=== PATIENT | female | born 1990 | race Caucasian/White ===

== ENCOUNTER 2017-11-25 20:43 | Emergency (ER) | payer OTHER ==
[2017-11-25 20:49] VITALS: BP 110/74; BMI 30.2
[2017-11-25] MEDS ORDERED: NS 1000 ML 1,000 ML IV ONE (21:10)
[2017-11-25] MEDS ORDERED: NS 1000 ML 1,000 ML ONE (21:11)
--- NOTE | 2017-11-25 21:24 | DR.GENAD ---
HPI - PCP Primary Care Physician: lakeisha - HPI Comment HPI Comment: PATIENT IS WEAK. NO FEVER. NOT HOLDING DOWN FOOD, FLUID OR PO MEDICATION. NO DYSURIA. - Complaint/Symptoms Chief Complaint Doctors Comments: NAUSEA, VOMITING AND DIARRHEA WITH ABDOMINAL CRAMPING TIMES ONE DAY. Chief Complaint:: pt c/o n/v for 24 hours - Nurses notes reviewed Nurses Notes Review: Yes - Source History Provided: Patient - Mode of Arrival Mode of Arrival: Ambulatory - Timing Onset of Chief Complaint: 11/24/17 Came on: Suddenly - Duration Duration: Constant Duration: Days - Severity Severity: Moderate PMH - PMH Past Medical History: Yes Past Medical History: Anxiety Past Surgical History: Yes Surgical History: [employer] Surgery, Tonsillectomy - Family History History of Family Medical Conditions: No - Social History Type of Tobacco Use: Cigarettes Does any household member use tobacco: No Alcohol Use: None Do you use any recreational Drugs:: No Lives With: Family Lives Where: Home - infectious screening In the last 2 months have you had wt loss of >10#?: NO Have you had fever, night sweats or hemotysis?: No Have you traveled outside the country in the last 6 months?: No Isolation: Standard ROS - Review of Systems Constitutional: Weakness, Fatigue. negative: Chills, Fever Eyes: negative: Eye Pain, Discharge ENTM: Nose Congestion. negative: Ear Pain, Nose Discharge, Throat Pain Respiratoy: No Symptoms Reported. negative: Productive Cough, Short of Breath, Wheezing, Hemoptysis Cardiovascular: No Symptoms Reported. negative: Chest Pain Gastrointestinal/Abdominal: Abdominal Pain, Diarrhea, Nausea, Vomiting Genitourinary: No Symptoms Reported. negative: Dysuria, Frequency, Hematuria Neurological: Weakness, Dizziness. negative: Headache Musculoskeletal: Muscle Pain Integumentary: No Symptoms Reported Hematologic/Lymphatic: No Symptoms Reported Endocrine: No Symptoms Reported All Other Systems: Reviewed and Negative PE - Vital Signs Vitals: Temperature 99.5 F Pulse Rate 102 Respiratory Rate 18 Blood Pressure 110/74 O2 Sat by Pulse Oximetry 100 - General Limitations: No Limitations General Appearance: Alert - Head Head Exam: Normal Inspection - Eyes Eye exam: Normal Appearance - ENT ENT Exam: Normal External Ear Exam External Ear Exam: Normal External Inspection TM/Canal Exam: Bilateral Normal Nose Exam: Normal Nose Exam Mouth Exam: Normal Inspection Throat Exam: Normal Inspection - Neck Neck Exam: Trachea Midline - Chest Chest Inspection: Symmetric Chest Wall Rise - Respiratory Respiratory Exam: Normal Lung Sounds Bilat Respiratory Exam: Bilateral Clear to Auscultation - Cardiovascular Cardiovascular Exam: Regular Rate, Normal Rhythm, Normal Heart Sounds - Abdominal Exam Abdominal Exam: Normal Bowel Sounds, Soft. negative: Tenderness - Extremities Extremities Exam: Normal Inspection - Back Back Exam: Normal Inspection - Neurologic Neurological Exam: Alert, Oriented X3 - Psychiatric Psychiatric Exam: Anxious - Skin Skin Exam: Normal Color MDM - Additional Information Additional Information Obtained From: Family - Differential Diagnosis Differential Diagnosis: DEHYDRATION, GASTROENTERITIS, INFLUENZA Course - Treatment Treatment: SEE ORDERS. - Education/Counseling Education/Counseling: Patient, Family, Education Educated On: Treatment, Diagnosis, Needs for Follow Up ROR - Labs Reviewed Laboratory Results Reviewed?: Yes Result Diagrams: 11/25/17 21:17 11/25/17 21:17 Laboratory: WBC 11.6 X10^3/uL (3.6-10.0) H 11/25/17 21:17 RBC 5.64 X10^6/uL (3.5-5.4) H 11/25/17 21:17 Hgb 16.4 g/dL (12.0-16.0) H 11/25/17 21:17 Hct 47.1 % (36.0-47.0) H 11/25/17 21:17 MCV 83.5 fL (80.0-100.0) 11/25/17 21:17 MCH 29.1 pg (27.0-34.0) 11/25/17 21:17 MCHC 34.9 g/dL (33.0-35.0) 11/25/17 21:17 RDW 13.1 % (11.6-16.5) 11/25/17 21:17 Plt Count 176 X10^3/uL (150.0-450.0) 11/25/17 21:17 MPV 9.6 fL (7.4-11.0) 11/25/17 21:17 Neut % 84.8 % (42.0-75.0) H 11/25/17 21:17 Lymph % 10.0 % (21.0-51.0) L 11/25/17 21:17 [place] % 3.7 % (0.0-13.0) 11/25/17 21:17 Eos % 1.2 % (0.9-2.9) 11/25/17 21:17 Baso % 0.3 % (0.2-1.0) 11/25/17 21:17 Neut # 9.9 x10^3/uL (2.2-4.8) H 11/25/17 21:17 Lymph # 1.2 X10^3/uL (1.3-2.9) L 11/25/17 21:17 [place] # 0.4 x10^3/uL (0.3-0.8) 11/25/17 21:17 Eos # 0.1 x10^3/uL (0.0-0.2) 11/25/17 21:17 Baso # 0.0 X10^3/uL (0.0-0.1) 11/25/17 21:17 Absolute Nucleated RBC 0.0 /100WBC 11/25/17 21:17 Sodium 140 mmol/L (136-145) 11/25/17 21:17 Corrected Sodium TNP 11/25/17 21:17 Potassium 3.9 mmol/L (3.5-5.1) 11/25/17 21:17 Chloride 103 mmol/L (98-107) 11/25/17 21:17 Carbon Dioxide 31.1 mmol/L (21-32) 11/25/17 21:17 BUN 12 mg/dL (7-18) 11/25/17 21:17 Creatinine 0.74 mg/dL (0.55-1.02) 11/25/17 21:17 Est GFR (MDRD) Af Amer > 60 (>60) 11/25/17 21:17 Est GFR (MDRD) Non-Af > 60 (>60) 11/25/17 21:17 Glucose 93 mg/dL (65-99) 11/25/17 21:17 Calcium 8.6 mg/dL (8.5-10.1) 11/25/17 21:17 Corrected Calcium TNP 11/25/17 21:17 Total Bilirubin 0.60 mg/dL (0.2-1.0) 11/25/17 21:17 AST 14 Units/L (15-37) L 11/25/17 21:17 ALT 26 Units/L (12-78) 11/25/17 21:17 Alkaline Phosphatase 65 Units/L (46-116) 11/25/17 21:17 Total Protein 7.9 g/dL (6.4-8.2) 11/25/17 21:17 Albumin 4.1 g/dL (3.4-5.0) 11/25/17 21:17 Globulin 3.8 g/dL (2.5-4.5) 11/25/17 21:17 Albumin/Globulin Ratio 1.1 Ratio (1.1-2.1) 11/25/17 21:17 HCG, Qual Negative <10 mIU/mL 11/25/17 21:17 Specimen Type Clean catch urine 11/25/17 21:16 Urine Color [place] (YELLOW) 11/25/17 21:16 Urine Appearance Clear (CLEAR) 11/25/17 21:16 Urine pH 6.0 (5.0 - 8.0) 11/25/17 21:16 Ur Specific [place] 1.010 (1.000-1.030) 11/25/17 21:16 Urine Protein 1+ (NEGATIVE) 11/25/17 21:16 Urine Glucose (UA) Negative (NEGATIVE) 11/25/17 21:16 Urine Ketones Negative (NEGATIVE) 11/25/17 21:16 Urine Occult Blood 2+ (NEGATIVE) 11/25/17 21:16 Urine Nitrite Negative (NEGATIVE) 11/25/17 21:16 Urine Bilirubin 1+ (NEGATIVE) 11/25/17 21:16 Urine Urobilinogen 1+ (NORMAL) 11/25/17 21:16 Ur Leukocyte Esterase 1+ (NEGATIVE) 11/25/17 21:16 Urine RBC 4-8 /HPF (NEGATIVE) 11/25/17 21:16 Urine WBC 0-2 /HPF (NEGATIVE) 11/25/17 21:16 Ur Squamous Epith Cells Moderate /HPF (NEGATIVE) 11/25/17 21:16 Urine Bacteria Trace /HPF (NEGATIVE) 11/25/17 21:16 Urine Mucus Many /HPF (NEGATIVE) 11/25/17 21:16 Ur Culture Indicated? No/not indicated 11/25/17 21:16 Influenza Type A (PCR) Negative (NEGATIVE) 11/25/17 21:16 Influenza Type B (PCR) Negative (NEGATIVE) 11/25/17 21:16 - Diagnosis Discharge Problem: Gastroenteritis, Dehydration - Discharge Plan Condition: Stable Prescriptions: Dicyclomine HCl [Bentyl Cap 10 mg] 10 mg PO TID PRN #15 cap PRN Reason: Diphenoxylate/Atropine [Lomotil] 1 tab PO TID #15 tab Ondansetron [Zofran ODT 8 mg] 8 mg PO Q8H PRN #12 tab PRN Reason: Nausea/Vomiting - Follow ups/Referrals Follow ups/Referrals: OPAL FRITZ [Primary Care Provider] - 3 days - Instructions Instructions: Viral Gastroenteritis, Adult, [id number], Rehydration, Adult Additional Instructions: RETURN TO ED IF WORSE.
[2017-11-25 21:28] LABS: BASOPHILS % (AUTO) 0.3 % (0.2-1.0); EOSINOPHILS # (AUTO) 0.1 x10^3/uL (0.0-0.2); EOSINOPHILS % (AUTO) 1.2 % (0.9-2.9); HEMATOCRIT 47.1 % (36.0-47.0); HEMOGLOBIN 16.4 g/dL (12.0-16.0); LYMPHOCYTES # (AUTO) 1.2 X10^3/uL (1.3-2.9); MEAN CORPUSCULAR HEMOGLOBIN 29.1 pg (27.0-34.0); MEAN CORPUSCULAR HGB CONC 34.9 g/dL (33.0-35.0); MEAN CORPUSCULAR VOLUME 83.5 fL (80.0-100.0); MEAN PLATELET VOLUME 9.6 fL (7.4-11.0); MONOCYTES # (AUTO) 0.4 x10^3/uL (0.3-0.8); MONOCYTES % (AUTO) 3.7 % (0.0-13.0); NEUTROPHILS # (AUTO) 9.9 x10^3/uL (2.2-4.8); NEUTROPHILS % (AUTO) 84.8 % (42.0-75.0); PLATELET COUNT 176 X10^3/uL (150.0-450.0); RED BLOOD COUNT 5.64 X10^6/uL (3.5-5.4); RED CELL DISTRIBUTION WIDTH 13.1 % (11.6-16.5); WHITE BLOOD COUNT 11.6 X10^3/uL (3.6-10.0)
[2017-11-25] MEDS ORDERED: ZOFRAN INJ 4 MG VIAL IVP ONE ×2 (21:35)
[2017-11-25] MEDS ORDERED: ZOFRAN INJ 4 MG VIAL ONE (21:35)
[2017-11-25 21:43] LABS: ALANINE AMINOTRANSFERASE 26 Units/L (12-78); ALBUMIN 4.1 g/dL (3.4-5.0); ALKALINE PHOSPHATASE 65 Units/L (46-116); ASPARTATE AMINO TRANSFERASE 14 Units/L (15-37); BLOOD UREA NITROGEN 12 mg/dL (7-18); CALCIUM 8.6 mg/dL (8.5-10.1); CARBON DIOXIDE 31.1 mmol/L (21-32); CHLORIDE 103 mmol/L (98-107); CREATININE 0.74 mg/dL (0.55-1.02); SODIUM 140 mmol/L (136-145); TOTAL PROTEIN 7.9 g/dL (6.4-8.2); eGFR BLACK RACES > 60 (>60); eGFR NON BLACK RACES > 60 (>60)
[2017-11-25 21:45] LABS: SERUM PREGNANCY TEST, QUAL NEGATIVE <10 mIU/mL
[2017-11-25 21:47] LABS: BILIRUBIN,URINE 1+ (NEGATIVE); BLOOD/HEMOGLOBIN,URINE 2+ (NEGATIVE); GLUCOSE, URINE NEGATIVE (NEGATIVE); KETONES,URINE NEGATIVE (NEGATIVE); LEUKOCYTE ESTERASE ,URINE 1+ (NEGATIVE); NITRITES,URINE NEGATIVE (NEGATIVE); PROTEIN,URINE 1+ (NEGATIVE); UROBILINOGEN,URINE 1+ (NORMAL)
[2017-11-25 21:59] LABS: APPEARANCE,URINE CLEAR (CLEAR); BACTERIA,URINE TRACE /HPF (NEGATIVE); COLOR,URINE AMBER (YELLOW); MUCUS,URINE MANY /HPF (NEGATIVE); SQUAMOUS EPITHELIAL CELL,UR MODERATE /HPF (NEGATIVE)
[2017-11-25] MEDS ORDERED: PHENERGAN INJ 25 MG IV ONE (23:03)
[2017-11-25] MEDS ORDERED: PHENERGAN INJ 25 MG ONE (23:06)
== END 2017-11-25 23:34 | disposition home or self-care (01) ==
LOC: ER 20:56
DX: K52.89 Other specified noninfective gastroenteritis and colitis (principal); E86.0 Dehydration
CPT/HCPCS: 36415; 80053; 81001; 84703; 85025; 87502; 96365; 96367; 96374; 96375; 99282; 99283; A4222; J2405; J2550